=== PATIENT | female | born 1940 | race Caucasian/White ===

== ENCOUNTER 2021-02-05 13:30 | Emergency (ER) | payer MEDICARE, MEDICAID ==
[~2021-02-05] VITALS: Ht 152.4 cm; Wt 81.8 kg
[2021-02-05 14:19] LABS: BASOPHILS % (AUTO) 0.5 % (0-1); EOSINOPHILS # (AUTO) 0.1 X10'3 (0-0.9); EOSINOPHILS % (AUTO) 0.7 % (0-6); HEMATOCRIT 39.5 % (35.0-45.0); HEMOGLOBIN 12.9 g/dl (12.0-16.0); LYMPHOCYTES # (AUTO) 1.5 X10'3 (1.1-4.8); LYMPHOCYTES % (AUTO) 17.9 % (21-51); MEAN CORPUSCULAR HEMOGLOBIN 29.8 PG (27.0-31.0); MEAN CORPUSCULAR HGB CONC 32.6 g/dL (33.0-36.5); MEAN CORPUSCULAR VOLUME 91.6 FL (78-98); MONOCYTES # (AUTO) 0.9 X10'3 (0-0.9); MONOCYTES % (AUTO) 10.5 % (2-12); NEUTROPHILS # (AUTO) 5.9 X10'3 (1.8-7.7); NEUTROPHILS % (AUTO) 70.4 % (42-75); PLATELET COUNT 190 X10'3 (140-440); RED BLOOD COUNT 4.31 X10'6 (4.20-5.60); RED CELL DISTRIBUTION WIDTH 14.6 % (11.5-14.5); WHITE BLOOD COUNT 8.4 X10'3 (4.5-11.0)
[2021-02-05 14:45] LABS: ALANINE AMINOTRANSFERASE 18 U/L (12-78); ALBUMIN/GLOBULIN RATIO 0.8 (1.1-1.5); ALKALINE PHOSPHATASE 47 IU/L (46-116); ANION GAP 8 (8-16); ASPARTATE AMINO TRANSFERASE 21 U/L (10-37); BILIRUBIN,TOTAL 0.6 MG/DL (0.1-1.0); BLOOD UREA NITROGEN 33 MG/DL (7-18); CALCIUM 9.5 MG/DL (8.5-10.1); CHLORIDE 104 MMOL/L (99-107); GLUCOSE 166 MG/DL (70-104); POTASSIUM 4.5 MMOL/L (3.5-5.1); SODIUM 141 MMOL/L (135-145); TOTAL CARBON DIOXIDE 29.2 MMOL/L (24-32); TOTAL PROTEIN 6.9 G/DL (6.4-8.2); eGFR 33 ML/MIN
[2021-02-05] MEDS ORDERED: CEPH250T PO (15:51)
[2021-02-05 16:18] VITALS: BP 192/63
== END 2021-02-05 16:19 | disposition home or self-care (01) ==
LOC: ER 13:31
DX: L03.115 Cellulitis of right lower limb (principal); F17.200 Nicotine dependence, unspecified, uncomplicated; Z86.73 Personal history of transient ischemic attack (TIA), and cerebral infarction without residual deficits; Z79.2 Long term (current) use of antibiotics
CPT/HCPCS: 36415; 71045; 80053; 83880; 84484; 85025; 93005; 93971; 99285